=== PATIENT | male | born 1965 | race Caucasian/White ===

== ENCOUNTER 2017-02-01 14:57 | Emergency (ER) | payer SELFPAY ==
[~2017-02-01] VITALS: Ht 157.5 cm; Wt 77.0 kg
[2017-02-01 16:32] VITALS: BP 117/64
[2017-02-01] MEDS ORDERED: IBUPROFEN 200 MG TABLET PO ONE (17:00)
== END 2017-02-01 18:17 | disposition home or self-care (01) ==
LOC: ED 18:10
DX: M79.671 Pain in right foot (principal); M79.672 Pain in left foot; F32.9 Major depressive disorder, single episode, unspecified; F17.200 Nicotine dependence, unspecified, uncomplicated
CPT/HCPCS: 99283